=== PATIENT | female | born 1970 | race American Indian/Alaskan Native ===

== ENCOUNTER 2016-09-06 11:32 | Emergency (ER) | payer SELFPAY ==
--- NOTE | 2016-09-06 14:37 | Emergency Department Report ---
ED Lower Extremity HPI - General Chief Complaint: Extremity Injury, Lower Stated Complaint: FEET PAIN Time Seen by Provider: 09/06/16 13:49 Source: patient Mode of arrival: Ambulatory Limitations: No Limitations - History of Present Illness Initial Comments: 46-year-old female past medical history smoker hypertension drinks alcohol on a weekly basis presents with complaint of bilateral distal foot pain for approximately 1 month. 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 States that she often experiences foot pain and sometimes experiences numbness and tingling in her distal feet. Patient denies any direct trauma no fever no chills. Denies any foot swelling. Patient is awake alert and oriented 3 does not appear in acute distress is conversant cooperative not complaining of severe pain at the moment primarily complaining of chronic tingling and numbness and burning sensation to her bilateral feet and hands for quite some time. Has not addressed this issue with the supervisor finish end or primary doctor as of yet. MD Complaint: other (bilateral foot burnign sensation) Onset/Timin -: year(s) Injury: Foot: Right, Left Place: home, work Severity: moderate Associated Symptoms: numbness, ambulatory - Related Data Home Medications Medication Instructions Recorded Confirmed Last Taken Aspirin [Aspirin BABY CHEW TAB] 81 mg PO QDAY 12/04/13 12/04/13 12/04/13 00:00 Lisinopril [Zestril TAB] 20 mg PO QDAY 12/04/13 12/04/13 12/04/13 00:00 Previous Rx's Medication Instructions Recorded Last Taken Type Famotidine [Pepcid] 40 mg PO QHS #7 tablet 12/04/13 Unknown Rx amLODIPine [Norvasc] 5 mg PO DAILY #30 tab 12/04/13 Unknown Rx hydrOXYzine HCL [Atarax] 50 mg PO Q6HR PRN #20 tablet 12/04/13 Unknown Rx Acetaminophen [Acetaminophen TAB] 500 mg PO Q6HR PRN #30 tablet 09/06/16 Unknown Rx Gabapentin [Neurontin] 100 mg PO Q8HR #90 capsule 09/06/16 Unknown Rx Allergies Allergy/AdvReac Type Severity Reaction Status Date / Time lisinopril Allergy Angioedema Verified 09/06/16 11:54 salmon Allergy Anaphylaxis Uncoded 09/06/16 11:54 ED Review of Systems ROS: Stated complaint: FEET PAIN Other details as noted in HPI Constitutional: denies: chills, fever Eyes: denies: eye pain, eye discharge, vision change ENT: denies: ear pain, throat pain Respiratory: denies: cough, shortness of breath, wheezing Cardiovascular: denies: chest pain, palpitations Endocrine: no symptoms reported Gastrointestinal: denies: abdominal pain, nausea, diarrhea Genitourinary: denies: urgency, dysuria, discharge Musculoskeletal: denies: back pain, joint swelling, arthralgia Skin: denies: rash, lesions Neurological: paresthesias (bilateral foot burning sensation and tingling sensation worse at night patient has been experiencing this for well over one year). denies: headache, weakness Psychiatric: denies: anxiety, depression Hematological/Lymphatic: denies: easy bleeding, easy bruising ED Past Medical Hx - Past Medical History Hx Hypertension: Yes Additional medical history: ALCOHOLIC - Surgical History Past Surgical History?: No - Social History Smoking Status: Current Every Day Smoker Substance Use Type: Alcohol - Medications Home Medications: Home Medications Medication Instructions Recorded Confirmed Last Taken Type Aspirin [Aspirin BABY CHEW TAB] 81 mg PO QDAY 12/04/13 12/04/13 12/04/13 00:00 History Famotidine [Pepcid] 40 mg PO QHS #7 tablet 12/04/13 Unknown Rx Lisinopril [Zestril TAB] 20 mg PO QDAY 12/04/13 12/04/13 12/04/13 00:00 History amLODIPine [Norvasc] 5 mg PO DAILY #30 tab 12/04/13 Unknown Rx hydrOXYzine HCL [Atarax] 50 mg PO Q6HR PRN #20 tablet 12/04/13 Unknown Rx Acetaminophen [Acetaminophen TAB] 500 mg PO Q6HR PRN #30 tablet 09/06/16 Unknown Rx Gabapentin [Neurontin] 100 mg PO Q8HR #90 capsule 09/06/16 Unknown Rx ED Physical Exam - General Limitations: No Limitations General appearance: alert, in no apparent distress - Head Head exam: Present: atraumatic, normocephalic - Eye Eye exam: Present: normal appearance, PERRL, EOMI - ENT ENT exam: Present: mucous membranes moist - Neck Neck exam: Present: normal inspection - Respiratory Respiratory exam: Present: normal lung sounds bilaterally. Absent: respiratory distress - Cardiovascular Cardiovascular Exam: Present: regular rate, normal rhythm. Absent: systolic murmur, diastolic murmur, rubs, gallop - GI/Abdominal GI/Abdominal exam: Present: soft, normal bowel sounds - Extremities Exam Extremities exam: Present: normal inspection - Back Exam Back exam: Present: normal inspection - Neurological Exam Neurological exam: Present: alert, oriented X3, CN II-XII intact, normal gait - Expanded Neurological Exam Expanded Patient oriented to: Present: person, place, time Cranial nerves: Facial Sensation: Normal Cerebellar function: Finger to Nose: Normal, Heel to Whitley: Normal, Romberg: Normal Sensory exam: Upper Extremity Light Touch: Normal, Upper Extremity Pin Prick: Normal, Upper Extremity Temperature: Normal, Lower Extremity Light Touch: Normal , Lower Extremity Pin Prick: Normal, LE 2 Point Discrimination: Normal Motor strength exam: RUE: 5, LUE: 5, RLE: 5, LLE: 5 Best Eye Response (Margarita): (4) open spontaneously Best Motor Response (Margarita): (6) obeys commands Best Verbal Response ([place]): (5) oriented [place] Total: 15 - Psychiatric Psychiatric exam: Present: normal affect, normal mood - Skin Skin exam: Present: warm, dry, intact, normal color. Absent: rash ED Course Vital Signs 09/06/16 11:54 Temperature 98.5 F Pulse Rate 115 H Respiratory 17 Rate Blood Pressure 130/97 O2 Sat by Pulse 99 Oximetry ED Lower Extremity MDM - Medical Decision Making A/P: Peripheral neuropathy; plantar fasciitis 1-agents clinical history and symptoms are consistent with peripheral neuropathy possibly secondary to her smoking and day-to-day activities associated with work patient states she is on her feet for prolonged periods of time. Bilateral lower extremities neurovascularly intact good distal sensation distal dorsalis pedis and posterior tibial pulses strong to palpation bilaterally. Patient's range of motion and hips knees and ankles is intact patient is ambulatory. 2-I gave patient information on plantar fasciitis and educated her on symptoms of peripheral neuropathy will give trial of gabapentin to see if this helps her symptoms, Tylenol when necessary. Patient states she has been taking Motrin with minimal relief of her pain in her feet. 3-will give patient referral to see a supervisor finish end primary care doctor 4- patient has no symptoms of CVA no weakness in extremities no slurred speech or facial droop no pronator drift patient is hemodynamically stable otherwise. 5- patient states she ran out of her blood pressure medicine is requesting a refill on her Norvasc. Critical care attestation.: If time is entered above; I have spent that time in minutes in the direct care of this critically ill patient, excluding procedure time. ED Disposition Clinical Impression: Plantar fasciitis, Peripheral neuropathic pain Disposition: DISCHARGED TO HOME OR SELFCARE Is pt being admited?: No Does the pt Need Aspirin: No Condition: Stable Instructions: Plantar Fasciitis (ED), Peripheral Neuropathy (ED) Prescriptions: Acetaminophen [Acetaminophen TAB] 500 mg PO Q6HR PRN #30 tablet PRN Reason: Pain Gabapentin [Neurontin] 100 mg PO Q8HR #90 capsule Referrals: DAVID RUSSELL DPM [Staff Physician] - 3-5 Days Forms: Work/School Release Form(ED) Time of Disposition: 14:38
[2016-09-06] MEDS ORDERED: TYLENOL PO ONE (14:40)
[2016-09-06 14:59] VITALS: BP 115/85
== END 2016-09-06 14:57 | disposition home or self-care (01) ==
LOC: ED 11:32
DX: M72.2 Plantar fascial fibromatosis (principal); M79.2 Neuralgia and neuritis, unspecified; I10 Essential (primary) hypertension; F17.200 Nicotine dependence, unspecified, uncomplicated; Z88.8 Allergy status to other drugs, medicaments and biological substances; Z79.82 Long term (current) use of aspirin
CPT/HCPCS: 99283

== ENCOUNTER 2016-10-28 17:45 | Emergency (ER) | payer SELFPAY ==
[2016-10-28] MEDS ORDERED: ZOFRAN ODT PO ONE (23:53)
[2016-10-29 00:01] LABS: Basophils % (Auto) 0.4 % (0.0-1.8); Eosinophils % (Auto) 0.7 % (0.0-4.3); Hematocrit 36.8 % (30.3-42.9); Hemoglobin 11.9 gm/dl (10.1-14.3); Mean Corpuscular HGB Conc 32 % (30-34); Mean Corpuscular Hemoglobin 30 pg (28-32); Mean Corpuscular Volume 93 fl (79-97); Platelet Count 364 K/mm3 (140-440); Red Blood Count 3.96 M/mm3 (3.65-5.03); Red Cell Distribution Width 15.6 % (13.2-15.2)
--- NOTE | 2016-10-29 00:07 | Emergency Department Report ---
<TUNDE STEINER - Last Filed: 10/29/16 06:11> ED Extremity Problem HPI - General Chief complaint: Extremity Problem,Nontraumatic Stated complaint: VOMITTING/FINGERS NUMB Time Seen by Provider: 10/28/16 22:34 Source: patient Mode of arrival: Ambulatory Limitations: No Limitations - History of Present Illness Initial comments: This is a 46-year-old female well-nourished with nontoxic or ill in appearance that presents with chronic numbness and tingling sensation to the upper and lower extremity. Patient stated 2 weeks ago started to increase. Patient denies any recent trauma to extremities. She also complains of nausea with loss of appetite. Patient denies any chest pain, shortness of breath, abdominal pain, fever, chills, joint swelling, joint tenderness, headache, blurry vision, or vomiting. Patient states allergy to lisinopril and examined. Past medical history includes smoker with alcohol on a weekly basis. 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 Denies swelling of the extremities. Patient denies recent travels or long car rides. Patient stated was here two months ago and was dx with neuropathy. Patient stated she received Gabapentin was significant relief. MD Complaint: other (extremity numbness, tingling) -: Gradual, year(s) Location: left, right, upper extremity, lower extremity, bilateral lower extremity History of Same: Yes Severity scale (0 -10): 0 Consistency: intermittent Worsens with: nothing Associated Symptoms: denies other symptoms. denies: chest pain, shortness of breath, fever, myalgias, arthralgias - Related Data Home Medications Medication Instructions Recorded Confirmed Last Taken Aspirin [Aspirin BABY CHEW TAB] 81 mg PO QDAY 12/04/13 12/04/13 12/04/13 00:00 Lisinopril [Zestril TAB] 20 mg PO QDAY 12/04/13 12/04/13 12/04/13 00:00 Previous Rx's Medication Instructions Recorded Last Taken Type Famotidine [Pepcid] 40 mg PO QHS #7 tablet 12/04/13 Unknown Rx hydrOXYzine HCL [Atarax] 50 mg PO Q6HR PRN #20 tablet 12/04/13 Unknown Rx Acetaminophen [Acetaminophen TAB] 500 mg PO Q6HR PRN #30 tablet 09/06/16 Unknown Rx Gabapentin [Neurontin] 100 mg PO Q8HR #90 capsule 09/06/16 Unknown Rx amLODIPine [Norvasc] 5 mg PO DAILY #30 tab 09/06/16 Unknown Rx Allergies Allergy/AdvReac Type Severity Reaction Status Date / Time lisinopril Allergy Angioedema Verified 09/06/16 11:54 salmon Allergy Anaphylaxis Uncoded 09/06/16 11:54 ED Review of Systems ROS: Stated complaint: VOMITTING/FINGERS NUMB Other details as noted in HPI Constitutional: denies: chills, fever Eyes: denies: eye pain, eye discharge, vision change ENT: denies: ear pain, throat pain Respiratory: denies: cough, shortness of breath, wheezing Cardiovascular: denies: chest pain, palpitations Endocrine: no symptoms reported Gastrointestinal: denies: abdominal pain, nausea, diarrhea Genitourinary: denies: urgency, dysuria, discharge Musculoskeletal: denies: back pain, joint swelling, arthralgia Skin: denies: rash, lesions Neurological: denies: headache, weakness, paresthesias Psychiatric: denies: anxiety, depression Hematological/Lymphatic: denies: easy bleeding, easy bruising ED Past Medical Hx - Past Medical History Hx Hypertension: Yes Additional medical history: ALCOHOLIC - Surgical History Past Surgical History?: No - Social History Smoking Status: Current Every Day Smoker - Medications Home Medications: Home Medications Medication Instructions Recorded Confirmed Last Taken Type Aspirin [Aspirin BABY CHEW TAB] 81 mg PO QDAY 12/04/13 12/04/13 12/04/13 00:00 History Famotidine [Pepcid] 40 mg PO QHS #7 tablet 12/04/13 Unknown Rx Lisinopril [Zestril TAB] 20 mg PO QDAY 12/04/13 12/04/13 12/04/13 00:00 History hydrOXYzine HCL [Atarax] 50 mg PO Q6HR PRN #20 tablet 12/04/13 Unknown Rx Acetaminophen [Acetaminophen TAB] 500 mg PO Q6HR PRN #30 tablet 09/06/16 Unknown Rx Gabapentin [Neurontin] 100 mg PO Q8HR #90 capsule 09/06/16 Unknown Rx amLODIPine [Norvasc] 5 mg PO DAILY #30 tab 09/06/16 Unknown Rx ED Physical Exam - General Limitations: No Limitations General appearance: alert, in no apparent distress - Head Head exam: Present: atraumatic, normocephalic - Eye Eye exam: Present: normal appearance, PERRL, EOMI Pupils: Present: normal accommodation - ENT ENT exam: Present: normal exam, normal orophraynx, mucous membranes moist, TM's normal bilaterally, normal external ear exam - Neck Neck exam: Present: normal inspection, full ROM. Absent: tenderness, meningismus, lymphadenopathy, thyromegaly - Respiratory Respiratory exam: Present: normal lung sounds bilaterally. Absent: respiratory distress, wheezes, rales, rhonchi, stridor, chest wall tenderness, accessory muscle use, decreased breath sounds, prolonged expiratory - Cardiovascular Cardiovascular Exam: Present: regular rate, normal rhythm, normal heart sounds. Absent: bradycardia, tachycardia, irregular rhythm, systolic murmur, diastolic murmur, rubs, gallop - GI/Abdominal GI/Abdominal exam: Present: soft, normal bowel sounds. Absent: distended, tenderness, guarding, rebound, rigid, diminished bowel sounds, hyperactive bowel sounds, hypoactive bowel sounds, organomegaly, mass, bruit, pulsatile mass , hernia - Rectal Rectal exam: Present: deferred - Extremities Exam Extremities exam: Present: normal inspection, full ROM, normal capillary refill. Absent: tenderness, pedal edema, joint swelling, calf tenderness - Expanded Upper Extremity Exam Left General: Present: normal inspection Shoulder Exam: Present: normal inspection, full ROM. Absent: tenderness, swelling, abrasion, deformity, crepidus, dislocation, erythema, tenderness over AC joint Upper Arm exam: Present: normal inspection, full ROM. Absent: tenderness, swelling, abrasion, laceration, erythema Elbow exam: Present: normal inspection, full ROM. Absent: tenderness, swelling , abrasion, laceration, dislocation, effusion, pain w/ pronation/supination, tenderness over radial head Forearm Wrist exam: Present: normal inspection, full ROM. Absent: tenderness, swelling, tenderness over anatomical snuff box, pain with axial thumb loading Hand Wrist exam: Present: normal inspection, full ROM. Absent: tenderness, swelling, abrasion, laceration, ecchymosis, erythema, amputation, nail avulsion , subungual hematoma Neuro motor exam: Present: wrist extension intact Neurosensory exam: Present: 2-point discrimination, radial nerve intact, ulnar nerve intact, median nerve intact Vascular: Present: vascular compromise - Expanded Lower Extremity Exam Left Hip exam: Present: normal inspection, full ROM, tenderness. Absent: swelling, abrasion Upper Leg exam: Present: normal inspection, full ROM. Absent: tenderness, swelling, dislocation, erythema Knee exam: Present: normal inspection, full ROM. Absent: tenderness, swelling, abrasion, laceration Lower Leg exam: Present: normal inspection, full ROM. Absent: tenderness, swelling, abrasion, laceration, ecchymosis, deformity, crepidus, dislocation, erythema, palpable cord, Irena's sign Ankle exam: Present: normal inspection, full ROM. Absent: tenderness, swelling , abrasion, laceration, ecchymosis, deformity, crepidus, dislocation, erythema, anterior draw sign Foot/Toe exam: Present: normal inspection, full ROM. Absent: tenderness, swelling, abrasion, laceration, ecchymosis, dislocation, erythema, amputation, puncture wound, foreign body, calcaneal tenderness, tenderness at base of 5th metatarsal, nail avulsion, subungual hematoma Neuro vascular tendon exam: Present: no vascular compromise. Absent: pulse deficit, abnormal cap refill, motor deficit, sensory deficit, tendon deficit, extremity cold to touch, pallor, decreased fine/light touch, foot drop, peroneal nerve deficit, significant pain with passive ROM of distal joint Gait: Positive: observed and normal - Back Exam Back exam: Present: normal inspection, full ROM, CVA tenderness (L). Absent: tenderness, CVA tenderness (R), muscle spasm, paraspinal tenderness, vertebral tenderness - Neurological Exam Neurological exam: Present: alert, oriented X3, CN II-XII intact, normal gait - Expanded Neurological Exam Expanded Patient oriented to: Present: person, place, time Speech: Present: fluid speech Cranial nerves: EOM's Intact: Normal, Gag Reflex: Normal, Tongue Deviation: Normal, Nystagmus: Normal, Facial Sensation: Normal, Facial Palsy with Forehead Movement: Normal, Facial Palsy without Forehead Movement: Normal Cerebellar function: Finger to Nose: Normal, Heel to [place]: Normal, Romberg: Normal Upper motor neuron: [place] Neglect: Normal, Pronator Drift: Normal, Babinski Sign : Normal, Sensory Extinction: Normal Sensory exam: Upper Extremity Light Touch: Normal, Upper Extremity Pin Prick: Normal, Upper Extremity Temperature: Normal, UE 2 Point Discrimination: Normal, Lower Extremity Light Touch: Normal, Lower Extremity Pin Prick: Normal, Lower Extremity Temperature: Normal, LE 2 Point Discrimination: Normal Best Eye Response ([place]): (4) open spontaneously Best Motor Response (Margarita): (6) obeys commands Best Verbal Response ([place]): (5) oriented [place] Total: 15 - Psychiatric Psychiatric exam: Present: normal affect, normal mood - Skin Skin exam: Present: warm, dry, intact, normal color. Absent: rash ED Course Vital Signs 10/28/16 10/28/16 10/28/16 19:24 19:29 23:48 Temperature 97.5 F L 97.5 F L 98.1 F Pulse Rate 67 67 104 H Respiratory 18 20 Rate Blood Pressure 109/82 Blood Pressure 109/82 111/81 [Right] O2 Sat by Pulse 100 100 Oximetry 10/29/16 10/29/16 01:40 05:57 Temperature 97.7 F 98.1 F Pulse Rate 77 104 H Respiratory 15 13 Rate Blood Pressure Blood Pressure 119/81 121/76 [Right] O2 Sat by Pulse 100 100 Oximetry - Reevaluation(s) Reevaluation #1: 10/29/16 00:50 Patient signed off to the main side ED with Dr. Rogers. Dr. Rogers was informed of patient hx with abnormal lab values. At this time the patient does not seem toxic or ill in appearance. - Consultations Consultation #1: 10/29/16 00:50 Dr. Rogers has been informed of lab values. 10/29/16 00:52 Dr. Rogers requested for 40 mg potassium by mouth and 40 meq potassium IV. Phosphorus and magnesium levels also to be obtained. ED Medical Decision Making - Lab Data Result diagrams: 10/28/16 23:49 10/29/16 04:40 Critical care attestation.: If time is entered above; I have spent that time in minutes in the direct care of this critically ill patient, excluding procedure time. ED Disposition Disposition: DISCHARGED TO HOME OR SELFCARE Is pt being admited?: No Does the pt Need Aspirin: No Condition: Stable Instructions: Hypokalemia (ED), Peripheral Neuropathy (ED) Additional Instructions: Please follow up with the primary care physician in the next 3-5 days. Return to the ER if your symptoms significantly worsen or you develop new symptoms. Referrals: [facility] [Outside] - 3-5 Days [facility] [Outside] - 3-5 Days [facility] [Outside] - 3-5 Days [facility] [Outside] - 3-5 Days PRIMARY CARE, [Primary Care Provider] - 3-5 Days Forms: Work/School Release Form(ED) <RUSS ROGERS - Last Filed: 11/01/16 08:23> ED Medical Decision Making - Lab Data Result diagrams: 10/28/16 23:49 10/29/16 04:40 - Medical Decision Making repeat labs show improved potassium patient is stable for discharge
[2016-10-29 00:21] LABS: BUN/Creatinine Ratio 27.77; Blood Urea Nitrogen 25 mg/dL (7-17); Calcium 9.7 mg/dL (8.4-10.2); Carbon Dioxide 15 mmol/L (22-30); Chloride 94.7 mmol/L (98-107); Glucose 86 mg/dL (65-100); Sodium 133 mmol/L (137-145)
[2016-10-29 00:24] LABS: Anion Gap 26 mmol/L
[2016-10-29 00:25] LABS: Potassium 2.6 mmol/L (3.6-5.0)
[2016-10-29 00:36] LABS: Bilirubin,Urine NEG (Negative); Blood,Urine SM (Negative); Ketones,Urine 20 mg/dL (Negative); Leukocyte Esterase,Urine NEG (Negative); Mucus,Urine FEW /HPF; Nitrite,Urine NEG (Negative)
[2016-10-29] MEDS ORDERED: K-DUR PO ONE ×2 (00:41→04:04)
[2016-10-29] MEDS ORDERED: LACTATED RINGERS 1,000 ML IV ONE (00:42)
[2016-10-29] MEDS ORDERED: KCL 20 MEQ in LACTATED RINGERS 1,000 ML IV SCH (00:45)
[2016-10-29 01:00] LABS: Magnesium 2.3 mg/dL (1.7-2.3); Phosphorous 3.3 mg/dL (2.5-4.5)
[2016-10-29] MEDS ORDERED: KCL 10MEQ/100ML 10 MEQ/100 ML BAG IV SCH (01:00)
[2016-10-29 05:08] LABS: Anion Gap 24 mmol/L; BUN/Creatinine Ratio 32.85; Blood Urea Nitrogen 23 mg/dL (7-17); Calcium 8.8 mg/dL (8.4-10.2); Carbon Dioxide 15 mmol/L (22-30); Chloride 96.8 mmol/L (98-107); Glucose 82 mg/dL (65-100); Potassium 3.5 mmol/L (3.6-5.0); Sodium 132 mmol/L (137-145)
[2016-10-29 05:58] VITALS: BP 121/76
== END 2016-10-29 05:57 | disposition home or self-care (01) ==
LOC: ED 17:45
DX: I10 Essential (primary) hypertension (principal); R20.2 Paresthesia of skin; R11.0 Nausea; F17.200 Nicotine dependence, unspecified, uncomplicated; R20.0 Anesthesia of skin
CPT/HCPCS: 36415; 80048; 81001; 82140; 82550; 83735; 83930; 84100; 84703; 85025; 93005; 93010; 96360; 96361; 99283; G0480; J3480; J7120; 80320; Q0162

== ENCOUNTER 2017-03-10 09:55 | Outpatient (CLI) | payer OTHER ==
--- NOTE | 2017-03-10 11:26 | XRay Report ---
Bilateral knee: History: Knee pain. Findings: No bony or articular abnormality. No fracture dislocation or joint effusion. Impression: Essentially negative right hand left knee.
--- NOTE | 2017-03-10 12:21 | XRay Report ---
Bilateral feet: Next History: Foot pain. Findings: Mild generalized osteopenia. Mild arthritic changes at the first tarsometatarsal joint and metatarsophalangeal joint bilaterally. No fracture periosteal or lytic lesion. No soft tissue calcification. Impression: Findings as detailed above. No acute changes.
== END 2017-03-10 09:56 | disposition home or self-care (01) ==
LOC: XRAY 09:55
PROVIDERS: ATTEND Internal Medicine
DX: M19.071 Primary osteoarthritis, right ankle and foot (principal); M19.072 Primary osteoarthritis, left ankle and foot; M85.872 Other specified disorders of bone density and structure, left ankle and foot; M85.871 Other specified disorders of bone density and structure, right ankle and foot; M25.561 Pain in right knee; M25.562 Pain in left knee

== ENCOUNTER 2017-03-19 11:58 | Outpatient (CLI) | payer OTHER ==
--- NOTE | 2017-03-19 12:29 | XRay Report ---
LEFT HAND RADIOGRAPHS INDICATION: Left hand pain. COMPARISON: None similar. FINDINGS: AP and lateral left hand radiographs demonstrate intact bones, joints and soft tissues. Mild periarticular osteopenia possible. CONCLUSION: No acute left hand radiographic abnormality. Thank you for the opportunity to participate in this patient's care.
== END 2017-03-19 11:59 | disposition home or self-care (01) ==
LOC: XRAY 11:58
PROVIDERS: ATTEND Internal Medicine
DX: M25.542 Pain in joints of left hand (principal); G62.9 Polyneuropathy, unspecified; E87.6 Hypokalemia